=== PATIENT | male | born 1955 | race Hispanic/Latino ===

== ENCOUNTER 2022-01-12 10:23 | Emergency (ER) | payer MEDICARE ==
[2022-01-12] VITALS (24 sets, daily range): BP systolic 79–110; BP diastolic 35–70
[~2022-01-12] VITALS: Ht 162.6 cm; Wt 55.0 kg
[2022-01-12] MEDS ORDERED: OMEPRAZOLE DR40 MG PO (11:41)
[2022-01-12] MEDS ORDERED: PROPRAN/HCT1 PO (11:43)
[2022-01-12 12:36] LABS: HEMATOCRIT 34.3 % (39.0-50.0); HEMOGLOBIN 11.3 g/dl (14.0-18.0); IMMATURE GRANULOCYTES 0.1 % (0.0-5.0); MEAN CELL VOLUME 99.1 fL CALC (80.0-100.0); MEAN CORPUSCULAR HGB 32.7 pG CALC (26.0-32.0); MEAN CORPUSCULAR HGB CONC 32.9 g/dL CAL (32.0-36.0); NEUT# 4.08 thou/uL (1.82-7.42); RED BLOOD COUNT 3.46 mill/uL (4.70-6.10); RED CELL DISTRI WIDTH 16.7 % (11.5-15.5)
[2022-01-12 12:49] LABS: AMYLASE 577 u/l (30-110); BUN 19 mg/dL (8-23); BUN/CREATININE RATIO 18 (12-20 (CALC)); CHLORIDE 107 mmol/l (95-108); CREATININE 1.1 mg/dL (0.7-1.3); ETHYL ALCOHOL 0 mg/dl (0-30); GFR > 60 ML/MIN (>=60 (CALC)); GFR FOR AFR.AMER. > 60 ML/MIN (>=60 (CALC)); INTERNATIONAL NORMALIZED RATIO 1.4 RATIO (0.7-1.3); POTASSIUM 3.6 mmol/l (3.5-5.1); PROTHROMBIN TIME 14.7 SECONDS (9.0-12.5); SGOT/AST 47 u/l (19-48)
[2022-01-12 12:53] LABS: ALBUMIN 2.5 g/dL (3.2-5.0); ALKALINE PHOSPHATASE 85 u/l (38-126); ANION GAP 9 (6-22 (CALC)); BILIRUBIN, TOTAL 2.6 mg/dL (0.0-1.4); CARBON DIOXIDE 21 mmol/l (22-30); SODIUM 133 mmol/l (137-146)
[2022-01-12 12:55] LABS: LIPASE 2294 u/l (23-300)
[2022-01-12 13:38] LABS: URINE BILIRUBIN - DIPSTICK NEGATIVE (NEGATIVE); URINE BLOOD DIPSTICK NEGATIVE (NEGATIVE); URINE COLOR YELLOW; URINE GLUCOSE - DIPSTICK NEGATIVE (NEGATIVE); URINE KETONE NEGATIVE (NEGATIVE); URINE LEUK ESTERASE NEGATIVE (NEGATIVE); URINE PROTEIN - DIPSTICK NEGATIVE (NEG-TRACE); URINE SPECIFIC GRAVITY 1.015
[2022-01-12 13:44] LABS: URINE NITRITE - DIPSTICK NEGATIVE (Negative)
[2022-01-13] VITALS (12 sets, daily range): BP systolic 66–106; BP diastolic 47–61
== END 2022-01-13 04:00 | disposition short-term general hospital (02) ==
LOC: ED 10:23
DX: K80.00 Calculus of gallbladder with acute cholecystitis without obstruction (principal); K85.90 Acute pancreatitis without necrosis or infection, unspecified; K70.30 Alcoholic cirrhosis of liver without ascites; F10.20 Alcohol dependence, uncomplicated